=== PATIENT | female | born 1955 | race Caucasian/White ===

== ENCOUNTER 2020-08-01 11:30 | Outpatient (RCR) | payer MEDICARE, OTHER | END 2020-08-08 | disposition home or self-care (01) | LOC: OT | DX: M25.522 Pain in left elbow (principal) ==

== ENCOUNTER 2021-12-02 15:31 | Emergency (ER) | payer OTHER ==
[2021-12-02] MEDS ORDERED: ESCITALOPRAM10 MG PO (15:36)
[2021-12-02 16:50] VITALS: BP 137/53
== END 2021-12-02 16:51 | disposition home or self-care (01) ==
LOC: ED 15:31
DX: R51.9 Headache, unspecified (principal)
CPT/HCPCS: J1885